=== PATIENT | female | born 1985 | race Two or more races ===

== ENCOUNTER → 2018-05-21 | Outpatient (CLI) | payer OTHER | LOC: M RAD 07:09 | DX: M46.1 Sacroiliitis, not elsewhere classified (principal); M79.1 Myalgia; M54.16 Radiculopathy, lumbar region; M51.36 Other intervertebral disc degeneration, lumbar region; M43.16 Spondylolisthesis, lumbar region | CPT/HCPCS: 72148 ==

== ENCOUNTER → 2018-08-04 | Outpatient (CLI) | payer OTHER | LOC: M LRY 11:53 | DX: S69.92XA Unspecified injury of left wrist, hand and finger(s), initial encounter (principal); Y92.89 Other specified places as the place of occurrence of the external cause; Y93.9 Activity, unspecified; Y99.9 Unspecified external cause status | CPT/HCPCS: 73140; G0463 ==

== ENCOUNTER 2019-12-11 08:42 | Emergency (ER) | payer OTHER ==
[~2019-12-11] VITALS: Ht 167.6 cm; Wt 93.0 kg
[2019-12-11] MEDS ORDERED: GABA-843 (08:50)
[2019-12-11] MEDS ORDERED: VENL150C43 (08:50)
[2019-12-11] MEDS ORDERED: OXYC10TA3 (08:50)
[2019-12-11 10:04] LABS: BASO % 0.3 % (0.0-1.0); EOS # 0.2 10^3/uL (0.0-0.5); EOS % 1.8 % (0.0-3.0); HEMATOCRIT 41.4 % (36.0-47.0); HEMOGLOBIN 14.2 g/dl (12.0-15.5); LYMPH # 1.6 10^3/uL (1.5-5.0); LYMPH % 13.7 % (24.0-44.0); MEAN CORPUSCULAR HEMOGLOBIN 31.5 pg (27.0-33.0); MEAN CORPUSCULAR HGB CONC 34.3 g/dl (32.0-36.5); MEAN CORPUSCULAR VOLUME 91.8 fl (80.0-96.0); MONO # 0.7 10^3/uL (0.0-0.8); MONO % 5.9 % (0.0-5.0); NEUTROPHILS % 77.9 % (36.0-66.0); PLATELET COUNT, AUTOMATED 333 10^3/uL (150-450); RED BLOOD COUNT 4.51 10^6/uL (4.00-5.40); WHITE BLOOD COUNT 11.6 10^3/uL (4.0-10.0)
[2019-12-11 10:33] LABS: ALBUMIN 3.7 GM/DL (3.2-5.2); BILIRUBIN,DIRECT 0.2 MG/DL (0.0-0.2); BILIRUBIN,TOTAL 0.5 MG/DL (0.2-1.0); TOTAL PROTEIN 6.7 GM/DL (6.4-8.2)
[2019-12-11] MEDS ORDERED: PYRI1TAB5 PO (10:40)
[2019-12-11] MEDS ORDERED: BACT800T5 PO (10:40)
[2019-12-11] MEDS ORDERED: LIDOCAINE 1% SDV 5 ML VIAL DILUENT ONE (10:45)
[2019-12-11] MEDS ORDERED: cefTRIAXone SOD 1 GM VIAL (J0696) IM ONE (10:45)
[2019-12-11 10:46] VITALS: BP 152/71
== END 2019-12-11 11:03 | disposition home or self-care (01) ==
LOC: M ED 08:42
DX: N12 Tubulo-interstitial nephritis, not specified as acute or chronic (principal); M41.9 Scoliosis, unspecified
CPT/HCPCS: 36415; 80047; 80076; 81001; 83690; 85025; 87086; 96372; 99283; J0696

== ENCOUNTER → 2020-06-15 | Outpatient (CLI) | payer OTHER ==
[~2020-06-15] MED LIST: BACT800T5 PO; GABA-843; OXYC10TA3; PYRI1TAB5 PO; VENL150C43
== END ==
LOC: M LABSMTC 10:00
PROVIDERS: ATTEND Pediatrics
DX: Z20.828 Contact with and (suspected) exposure to other viral communicable diseases (principal)
CPT/HCPCS: C9803; U0002

== ENCOUNTER → 2020-06-25 | Outpatient (REF) | payer OTHER | LOC: M SFHCWAGY 18:59 | PROVIDERS: ATTEND Nurse Practitioner Women's Health | DX: Z12.4 Encounter for screening for malignant neoplasm of cervix (principal); R87.610 Atypical squamous cells of undetermined significance on cytologic smear of cervix (ASC-US) | CPT/HCPCS: 87624; G0123; G0463 ==

== ENCOUNTER → 2020-08-23 | Outpatient (CLI) | payer OTHER | LOC: M LABSMTC 10:42 | PROVIDERS: ATTEND Pediatrics | DX: Z20.828 Contact with and (suspected) exposure to other viral communicable diseases (principal) ==

== ENCOUNTER → 2021-02-23 | Outpatient (REF) ==
[~2021-02-23] MED LIST changes: +GABA-282; -GABA-843
== END ==
LOC: M LABSMTC 13:25
PROVIDERS: ATTEND Pediatrics
DX: Z20.822 Contact with and (suspected) exposure to COVID-19 (principal)